=== PATIENT | female | born 1950 | race Caucasian/White ===

== ENCOUNTER 2017-12-15 12:38 | Emergency (ER) | payer OTHER, BC ==
[~2017-12-15] VITALS: Ht 170.2 cm; Wt 73.6 kg
[2017-12-15 13:29] LABS: BASOPHIL (%) 0.5 % (0-1); EOSINOPHIL (%) 1.8 % (0-5); EOSINOPHIL COUNT 0.1 K/uL (0-0.3); HEMATOCRIT 40.4 % (36.0-46.0); HEMOGLOBIN 13.5 G/DL (11.9-15.5); IMMATURE GRANULOCYTE (%) 0.3 % (0.0-0.7); LYMPHOCYTE (%) 30.3 % (15-42); LYMPHOCYTE COUNT 2.2 K/uL (1.0-2.8); MCH 30.5 PG (29.0-34.0); MCHC 33.4 G/DL (30.0-36.0); MCV 91.2 FL (83-99); MONOCYTE (%) 5.4 % (3-12); MONOCYTE COUNT 0.4 K/uL (0-0.8); NEUTROPHIL (%) 61.7 % (45-76); NEUTROPHIL COUNT 4.6 K/uL (1.8-6.4); PLATELET COUNT 290 K/uL (156-360); RBC DIS.WIDTH-CV 12.3 % (11.8-14.6); RBC DIS.WIDTH-SD 41.1 % (39-53); RED BLOOD COUNT 4.43 M/uL (3.80-5.20); WHITE BLOOD COUNT 7.4 K/uL (4.1-10.2)
[2017-12-15 13:37] LABS: CHLORIDE 102 mEq/L (99-109); POTASSIUM 4.1 mEq/L (3.7-5.4); SODIUM 139 mEq/L (136-147)
[2017-12-15 13:39] LABS: GLUCOSE 94 mg/dL (70-99)
[2017-12-15 13:42] LABS: SERUM ETHYL ALCOHOL < 10 mg/dL
[2017-12-15 13:43] LABS: CREATININE 0.9 mg/dL (0.6-1.3); GFR ESTIMATE (CALCULATED) > 59 mL/min/
[2017-12-15 13:44] LABS: UREA NITROGEN (BUN) 23 mg/dL (9-23)
[2017-12-15 13:50] LABS: AMPHETAMINE NEGATIVE (500 ng/mL); COCAINE NEGATIVE (150 ng/mL); METHAMPHETAMINE NEGATIVE (500 ng/mL); OPIATES (MORPHINE) NEGATIVE (100 ng/mL); PHENCYCLIDINE NEGATIVE (25 ng/mL); THC CANNABINOIDS NEGATIVE (50 ng/mL)
[2017-12-15 13:51] LABS: BARBITURATES NEGATIVE (200 ng/mL); BENZODIAZEPINES PRESUMPTIVE POSITIVE (150 ng/mL); BUPRENORPHINE NEGATIVE (10 ng/mL); METHADONE NEGATIVE (200 ng/mL); OXYCODONE NEGATIVE (100 ng/mL); PROPOXYPHENE NEGATIVE (300 ng/mL); TRICYCLIC ANTIDEPRESSANTS NEGATIVE (300 ng/mL)
[2017-12-15 14:31] LABS: BENZODIAZEPINES, URINE SCREEN POSITIVE (200 ng/mL)
[2017-12-15 15:37] LABS: APPEARANCE CLEAR ((CLEAR)); BILIRUBIN NEGATIVE; BLOOD NEGATIVE; COLOR COLORLESS ((YELLOW)); GLUCOSE (STRIP) NEGATIVE; KETONES 5; LEUKOCYTES NEGATIVE; NITRITE NEGATIVE; PROTEIN (STRIP) NEGATIVE; SPECIFIC GRAVITY 1.004 (1.000-1.030); UROBILINOGEN 0.2 MG/DL (0.2-1.0)
[2017-12-15] MEDS ORDERED: MEMANTINE HCL10 MG PO (18:11)
[2017-12-15] MEDS ORDERED: TRAZODONE HCL50 MG PO (18:12)
[2017-12-15] MEDS ORDERED: LEXAPRO10 MG PO (18:40)
[2017-12-15] MEDS ORDERED: CELEBREX200 MG PO (18:41)
[2017-12-15] MEDS ORDERED: EXELON6 MG PO (18:41)
[2017-12-15] MEDS ORDERED: ESSENTIAL DAIL1 EACH PO (18:43)
[2017-12-15] MEDS ORDERED: SEROQUEL12.5 MG PO (18:43)
[2017-12-15] MEDS ORDERED: XANAX0.5 MG PO (18:44)
[2017-12-15 20:55] VITALS: BP 146/97
== END 2017-12-15 21:26 ==
LOC: EME 12:38
PROVIDERS: Emergency Medicine
DX: F22 Delusional disorders (principal); F32.9 Major depressive disorder, single episode, unspecified; F02.81 Dementia in other diseases classified elsewhere, unspecified severity, with behavioral disturbance
CPT/HCPCS: 80048; 81003; 84999; 85025; 90837; 99281; 99284; G0480

== ENCOUNTER 2018-01-17 09:40 | Emergency (ER) | payer OTHER, BC ==
[~2018-01-17] VITALS: Ht 154.9 cm; Wt 69.7 kg
[~2018-01-17 09:40] MED LIST: CELEBREX200 MG PO; ESSENTIAL DAIL1 EACH PO; EXELON6 MG PO; LEXAPRO10 MG PO; MEMANTINE HCL10 MG PO; SEROQUEL12.5 MG PO; TRAZODONE HCL50 MG PO; XANAX0.5 MG PO
[2018-01-17 10:25] LABS: HEMATOCRIT 39.9 % (36.0-46.0); HEMOGLOBIN 13.2 G/DL (11.9-15.5); MCH 30.7 PG (29.0-34.0); MCHC 33.1 G/DL (30.0-36.0); MCV 92.8 FL (83-99); PLATELET COUNT 278 K/uL (156-360); RBC DIS.WIDTH-CV 12.5 % (11.8-14.6); RBC DIS.WIDTH-SD 42.6 % (39-53); WHITE BLOOD COUNT 6.7 K/uL (4.1-10.2)
[2018-01-17 10:33] LABS: ALBUMIN 4.2 g/dL (3.2-4.8)
[2018-01-17 10:34] LABS: CHLORIDE 102 mEq/L (99-109); POTASSIUM 4.7 mEq/L (3.7-5.4); SODIUM 138 mEq/L (136-147)
[2018-01-17 10:36] LABS: GLUCOSE 80 mg/dL (70-99); TOTAL PROTEIN 6.9 g/dL (6.4-8.3)
[2018-01-17 10:38] LABS: TOTAL BILIRUBIN 0.2 mg/dL (0.0-1.0)
[2018-01-17 10:39] LABS: ALKALINE PHOSPHATASE 64 IU/L (3-129); SERUM ETHYL ALCOHOL < 10 mg/dL
[2018-01-17 10:40] LABS: CREATININE 0.9 mg/dL (0.6-1.3); GFR ESTIMATE (CALCULATED) > 59 mL/min/
[2018-01-17 10:41] LABS: AST (GOT) 25 IU/L (2-34); UREA NITROGEN (BUN) 17 mg/dL (9-23)
[2018-01-17 10:43] LABS: ALT (GPT) 19 IU/L (3-49)
[2018-01-17 10:46] LABS: APPEARANCE CLEAR ((CLEAR)); BILIRUBIN NEGATIVE; BLOOD NEGATIVE; COLOR YELLOW ((YELLOW)); GLUCOSE (STRIP) NEGATIVE; KETONES NEGATIVE; LEUKOCYTES MODERATE; NITRITE NEGATIVE; PROTEIN (STRIP) NEGATIVE; SPECIFIC GRAVITY 1.015 (1.000-1.030); UROBILINOGEN 0.2 MG/DL (0.2-1.0)
[2018-01-17 10:49] LABS: BACTERIA RARE /HPF; EPITHELIAL CELLS RARE /HPF; MUCUS TRACE /LPF; RED BLOOD CELLS 0-5 /HPF (0-5); WHITE BLOOD CELLS 0-5 /HPF (0-5)
[2018-01-17 11:12] LABS: AMPHETAMINE NEGATIVE (500 ng/mL); BARBITURATES NEGATIVE (200 ng/mL); BENZODIAZEPINES PRESUMPTIVE POSITIVE (150 ng/mL); BUPRENORPHINE NEGATIVE (10 ng/mL); COCAINE NEGATIVE (150 ng/mL); METHADONE NEGATIVE (200 ng/mL); METHAMPHETAMINE NEGATIVE (500 ng/mL); OPIATES (MORPHINE) NEGATIVE (100 ng/mL); OXYCODONE NEGATIVE (100 ng/mL); PHENCYCLIDINE NEGATIVE (25 ng/mL); PROPOXYPHENE NEGATIVE (300 ng/mL); THC CANNABINOIDS NEGATIVE (50 ng/mL); TRICYCLIC ANTIDEPRESSANTS NEGATIVE (300 ng/mL)
[2018-01-17 12:14] LABS: BENZODIAZEPINES, URINE SCREEN POSITIVE (200 ng/mL)
[2018-01-18] MEDS ORDERED: TRAZODONE HCL50 MG PO (08:16)
[2018-01-18 10:05] VITALS: BP 122/88
== END 2018-01-18 12:36 ==
LOC: EME 09:40
PROVIDERS: Emergency Medicine
DX: F02.81 Dementia in other diseases classified elsewhere, unspecified severity, with behavioral disturbance (principal); R45.851 Suicidal ideations; F32.9 Major depressive disorder, single episode, unspecified; F41.1 Generalized anxiety disorder
CPT/HCPCS: 71045; 80053; 81003; 84999; 85027; 90837; 99281; 99285; G0480